=== PATIENT | female | born 1955 ===

== ENCOUNTER 2018-11-03 19:23 | Emergency (ER) | payer BC, MEDICAID ==
[~2018-11-03] VITALS: Ht 160 cm; Wt 81.5 kg
[2018-11-03 19:26] VITALS: BP 125/56
== END 2018-11-03 22:03 ==
LOC: ED 21:57
DX: D69.6 Thrombocytopenia, unspecified (principal); K70.40 Alcoholic hepatic failure without coma; D64.9 Anemia, unspecified; Z76.0 Encounter for issue of repeat prescription; Z87.891 Personal history of nicotine dependence
CPT/HCPCS: 36415; 71045; 80053; 82140; 85025; 93005; 99284

== ENCOUNTER 2019-03-10 12:16 | Emergency (ER) | payer MEDICAID ==
[~2019-03-10] VITALS: Ht 160 cm; Wt 84.4 kg
[~2019-03-10 12:16] MED LIST: DIURETIC; GERD MED; LACT10SO28 PO; [UNRECOGNIZED DRUG - REMARK]; [UNRECOGNIZED DRUG - REMARK]
[2019-03-10] MEDS ORDERED: ONDANSETRON ODT 4 MG PO ONE (13:00)
--- NOTE | 2019-03-10 13:10 | NUR ---
PT AMBULATED TO RESTROOM WITH STEADY GAIT TO PROVIDE A URINE SAMPLE. UA COLLECTED AND SENT TO LAB.
[2019-03-10 13:29] LABS: MICROSCOPIC NOT IND
[2019-03-10 13:35] LABS: INTERNATIONAL NORMALIZED RATIO 1.45 (0.93-1.1)
[2019-03-10 13:37] LABS: ALANINE AMINOTRANSFERASE 28 U/L (12-78); ALBUMIN 2.3 g/dL (3.4-5.0); ANION GAP 8 mmol/L (5-15); CALCIUM 8.5 mg/dL (8.5-10.1); CHLORIDE 113 mmol/L (98-107); CREATININE 0.84 mg/dL (0.55-1.02)
[2019-03-10 13:39] LABS: ALKALINE PHOSPHATASE 132 U/L (45-117); TOTAL PROTEIN 5.8 g/dL (6.4-8.2)
[2019-03-10 13:39] LABS: CULTURE INDICATED? NO
[2019-03-10 13:55] LABS: MEAN CORPUSCULAR HEMOGLOBIN 32.2 pg (27.0-34.8); MEAN CORPUSCULAR HGB CONC 32.7 g/dL (32.4-35.8); MEAN CORPUSCULAR VOLUME 98.6 fL (80-100); MEAN PLATELET VOLUME 10.3 fL (7.4-10.4); RED BLOOD COUNT 3.26 x10^6/uL (3.82-5.3); RED CELL DISTRIBUTION WIDTH 19.8 % (9.6-15.2)
[2019-03-10 13:59] LABS: PLATELET COUNT 37 x10^3/uL (130-400)
[2019-03-10 14:18] LABS: BASOPHILS # (AUTO) 0.01 x10^3/uL (0-0.1); BASOPHILS % (AUTO) 1 % (0-1); EOSINOPHILS # (AUTO) 0.08 x10^3/uL (0-0.4); EOSINOPHILS % (AUTO) 3 % (1-7); LYMPHOCYTES # (AUTO) 0.59 x10^3/uL (1-3.4); LYMPHOCYTES % (AUTO) 22 % (22-44); MD MORPH REVIEW ONLY; MONOCYTES # (AUTO) 0.29 x10^3/uL (0.2-0.8); MONOCYTES % (AUTO) 11 % (2-9); NEUTROPHILS # (AUTO) 1.68 x10^3/uL (1.8-6.8); NEUTROPHILS % (AUTO) 63 % (42-75)
[2019-03-10 14:20] LABS: <PLATELET ESTIMATE> DECREASED; <PLT MORPHOLOGY> NORMAL PLT MORPH; ANISOCYTOSIS 1+; OVALOCYTES 1+
[2019-03-10 14:23] VITALS: BP_DIAS 54
[2019-03-10 14:44] VITALS: BP_SYST 101
--- NOTE | 2019-03-10 14:45 | NUR ---
d/c with referral to GI
== END 2019-03-10 14:47 | disposition home or self-care (01) ==
LOC: ED 13:24
DX: R04.0 Epistaxis (principal); D61.818 Other pancytopenia; K21.9 Gastro-esophageal reflux disease without esophagitis; Z87.891 Personal history of nicotine dependence
CPT/HCPCS: 36415; 80053; 81003; 83690; 85025; 85610; 85730; 99283

== ENCOUNTER 2019-07-20 09:10 | Emergency (ER) | payer MEDICAID ==
--- NOTE | 2019-07-20 09:12 | NUR ---
PT ARRIVED TO ED PULSELESS/CODE BLUE INITIATED. SEE CPR SHEET.
[2019-07-20] MEDS ORDERED: EPINEPHRINE SYRINGE 0.1 MG/ML, 10ML ONE (09:54)
[2019-07-20] MEDS ORDERED: CODE BLUE RESPONSE XX ONE (09:54)
[2019-07-20] MEDS ORDERED: EPINEPHRINE 1 MG/ML, 1ML ONE (09:54)
[2019-07-20] MEDS ORDERED: DEXTROSE 50%, 50ML SYRINGE ONE (09:54)
--- NOTE | 2019-07-20 10:21 | NUR ---
NOT NOTIFIED OF PT BY DR FERGUSON. SON TO CALL BACK FOR MORTUARY INFORMATION.
--- NOTE | 2019-07-20 10:42 | NUR ---
PT RELEASED TO [facility].
[2019-07-20] MEDS ORDERED: SODIUM CHLORIDE 0.9% 1,000ML IVBOLUS ONE (11:00)
[2019-07-20] MEDS ORDERED: PLEASE ENTER HEIGHT AND WEIGHT MC SCH (11:30)
== END 2019-07-20 11:05 | disposition expired ==
LOC: ED 09:14
DX: I46.9 Cardiac arrest, cause unspecified (principal); R55 Syncope and collapse; K21.9 Gastro-esophageal reflux disease without esophagitis; Z87.891 Personal history of nicotine dependence
CPT/HCPCS: 92950; 99285; J0171; 31500